=== PATIENT | female | born 1990 | race African-American/Black ===

== ENCOUNTER 2023-01-29 10:58 | Emergency (ER) | payer BC, SELFPAY ==
--- NOTE | ~2023-01-29 | XR_ITS ---
XR chest 1V DATE: 01/29/2023 11:25 INDICATION: Seizure. Weakness. TECHNIQUE: Portable AP chest on 01/29/2023 at 1124 hours COMPARISON: None FINDINGS: Normal heart size. No hilar or mediastinal enlargement. Lung expansion is somewhat limited, which may account for somewhat accentuated lung markings, although lower lobe infiltrate or atelecta sis is not excluded, especially on the left. Repeat PA and lateral views are recommended for more def initive evaluation of the lungs. IMPRESSION: Limited examination with suboptimal expansion of the lungs; cannot exclude lower lung inf iltrate or atelectasis, especially on the left Reviewed, dictated and finalized at location A. IMPRESSION: Limited examination with suboptimal expansion of the lungs; cannot exclude lower lung infiltrate or atelectasis, especially on the left
[2023-01-29 10:59] VITALS: BP 119/81; PULSE 94; RESP 14; TEMP 36.4; O2SAT 100
[2023-01-29 11:20] VITALS: PULSE 90
--- NOTE | 2023-01-29 11:21 | ED.SEIZURE ---
HPI - Seizure General Chief Complaint: Seizure Stated Complaint: seizure Time Seen by Provider: 01/29/23 11:01 History of Present Illness HPI Narrative: Patient is a 32-year-old female with history of seizure disorder who presents ER after having a seizure. Reports she found out last month that she is . She has been seeing [facility] OB and they recommended she stop her Keppra due to possible harm. This morning she was walking in her kitchen she got lightheaded. She then apparently had a seizure. EMS provided patient with Versed in route. EMS reports generalized full tonic-clonic seizure with flexion of the upper extremities. Patient reports she has had an ultrasound to confirm that her is in her uterus. Seizure History: Yes Related Data Allergies Allergy/AdvReac Type Severity Reaction Status Date / Time No Known Allergies Allergy Verified 01/29/23 12:35 Review of Systems Review of Systems: All systems reviewed & are unremarkable except as noted in HPI and below Constitutional: Constitutional: Denies chills, Denies fatigue and Denies fever(s) ENT: Denies nasal congestion and Denies sore throat Cardiovascular: Cardiovascular: Reports no additional cardiovascular complaints Respiratory: Respiratory: Reports no additional respiratory complaints Gastrointestinal: Gastrointestinal: Reports no additional gastrointestinal complaints Musculoskeletal: Musculoskeletal: Reports no additional musculoskeletal complaints Neurologic: Denies syncope and Denies headache(s) Comments: Seizure Exam Narrative: GENERAL: Well-appearing, well-nourished, and in no acute distress. HEAD: Normocephalic, atraumatic. EYES: PERRL and EOMI. ENT: Mucous membranes moist. CHEST: Clear to auscultation. No respiratory distress. HEART: Regular rate and rhythm. Normal peripheral pulses. ABDOMEN: Soft, nontender, nondistended. EXTREMITIES: Normal range of motion. No edema. SKIN: Warm, dry, no rash. NEURO: Alert and oriented x3. Clear speech, no focal deficit. PSYCH: Normal mood and affect. Course Course Emergency Course: I discussed the case with Dr. Richey with neurology. He recommends a patient be started on Lamictal 100 mg twice a day and that she receive her first dose here. I discussed this with the patient and she is verbalized consent to have Lamictal prescribed and that she plans to take it. Patient felt appropriate for discharge home Vital Signs Vital signs: Vital Signs Temperature 97.6 F 01/29/23 10:59 Pulse Rate 94 01/29/23 10:59 Respiratory Rate 14 01/29/23 10:59 Blood Pressure 119/81 01/29/23 10:59 Pulse Oximetry 100 01/29/23 10:59 Oxygen Delivery Room Air 01/29/23 10:59 Temperature 97.6 F 01/29/23 10:59 Pulse Rate 90 01/29/23 11:20 Respiratory Rate 14 01/29/23 10:59 Blood Pressure 119/81 01/29/23 10:59 Pulse Oximetry 100 01/29/23 10:59 Oxygen Delivery Room Air 01/29/23 10:59 MDM - Seizure Lab Data 01/29/23 11:48 01/29/23 11:48 Labs: Lab Results 01/29/23 01/29/23 01/29/23 Range/Units 11:48 12:10 12:11 WBC 6.1 (4.5-10.0) K/mm3 RBC 3.98 L (4.2-5.4) M/mm3 Hgb 11.8 L (12.0-15.0) g/dL Hct 34.8 L (37.0-47.0) % MCV 87.4 (80-100) fl MCH 29.6 (26-34) pg MCHC 33.9 (32-36) g/dl RDW 13.2 (11.5-14.5) % Plt Count 235 (150-375) k/mm3 MPV 8.8 (7.4-10.4) fl Immature Gran % (Auto) 0.5 (0-0.5) % Neut % (Auto) 65.3 (45.5-73.1) % Lymph % (Auto) 25.2 (18.3-44.2) % [place] % (Auto) 7.9 (2.6-8.5) % Eos % (Auto) 0.8 (0-4.4) % Baso % (Auto) 0.3 (0.2-1.2) % Lymph # (Auto) 1.53 (0.9-3.2) K/mm3 [place] # (Auto) 0.5 (0.1-0.6) K/mm3 Eos # (Auto) 0.1 (0-0.3) K/mm3 Baso # (Auto) 0.0 (0.0-0.1) K/mm3 Abs Immat Gran (auto) 0.03 (0.00-0.031) K/mm3 Absolute Neuts (auto) 4.0 (1.3-6.7) K/mm3 Absolute Nucleated RBC
[2023-01-29 12:02] LABS: Basophils Percent Auto 0.3 % (0.2-1.2); Eosinophils Absolute Auto 0.1 K/mm3 (0-0.3); Eosinophils Percent Auto 0.8 % (0-4.4); Hematocrit 34.8 % (37.0-47.0); Hemoglobin 11.8 g/dL (12.0-15.0); Immature Granulocyte Absolute 0.03 K/mm3 (0.00-0.031); Immature Granulocyte Percent A 0.5 % (0-0.5); Lymphocytes Absolute Auto 1.53 K/mm3 (0.9-3.2); Lymphocytes Percent Auto 25.2 % (18.3-44.2); Mean Corpuscular HGB Conc 33.9 g/dl (32-36); Mean Corpuscular Hemoglobin 29.6 pg (26-34); Mean Corpuscular Volume 87.4 fl (80-100); Mean Platelet Volume 8.8 fl (7.4-10.4); Monocytes Absolute Auto 0.5 K/mm3 (0.1-0.6); Monocytes Percent Auto 7.9 % (2.6-8.5); Neutrophils Percent Auto 65.3 % (45.5-73.1); Platelet Count Result 235 k/mm3 (150-375); Red Blood Count 3.98 M/mm3 (4.2-5.4); Red Cell Distribution Width 13.2 % (11.5-14.5); White Blood Count 6.1 K/mm3 (4.5-10.0)
[2023-01-29 12:17] LABS: Ethanol < 10 mg/dL (<10)
[2023-01-29 12:29] LABS: Appearance Urine Cloudy (Clear); Bacteria Urine 4+ /hpf; Bilirubin Urine Negative (Negative); Blood Urine Negative (Negative); Color Urine Yellow (Yellow); Glucose Urine UA Negative (Negative); Ketones Urine Trace mg/dL (Negative); Leukocyte Esterase Ur 2+ LEU/UL (Negative); Need Manual Microscopic Reviewed; Nitrate Urine Negative (Negative); Non Pathogenic Casts 0-2; Protein Urine Negative (Negative); RBC Urine 0-2 /hpf (0-2); Specific Grav Ur 1.017 (1.001-1.035); Squamous Epithelial Cell Urine Many /hpf (Few); WBC Urine 0-5 /hpf; pH Urine 7.5 (5.0-9.0)
[2023-01-29 12:30] LABS: Add Urine Microscopic? YES
[2023-01-29 12:34] LABS: Amphetamine Screen Urine Negative (Negative); Barbiturate Screen Urine Negative (Negative); Benzodiazepines Screen Urine Positive (Negative); Cannabinoid Screen Urine Negative (Negative); Cocaine Screen Urine Negative (Negative); Methadone Screen Urine Negative (Negative); Opiate Screen Urine Negative (Negative); Phencyclidine Screen Urine Negative (Negative)
[2023-01-29] MEDS: lamoTRIgine 100 MG TABLET PO (12:35)
[2023-01-29 12:42] LABS: Alanine Aminotransferase 13 U/L (6-35); Albumin Level 3.7 g/dL (3.5-5.1); Alkaline Phosphatase 37 U/L (38-126); Anion Gap 9 mmol/L (8-16); Aspartate Amino Transferase 24 U/L (14-36); Bilirubin,Total 0.6 mg/dL (0.2-1.3); Blood Urea Nitrogen 5 mg/dL (7-17); Calcium 8.6 mg/dL (8.4-10.2); Carbon Dioxide 21 mmol/L (22-30); Chloride 107 mmol/L (98-107); Estimated CRCL calculation 138 ml/min; Estimated Glomerular Filt Rate > 60; Glucose 74 mg/dL (65-110); Potassium 3.7 mmol/L (3.4-5.0); Sodium 137 mmol/L (137-145)
[2023-01-29 13:54] VITALS: BP 134/78; PULSE 84; RESP 16; O2SAT 99
== END 2023-01-29 13:55 | disposition home or self-care (01) ==
PROVIDERS: Emergency Provider Emergency Medicine
DX: O26.899 Other specified pregnancy related conditions, unspecified trimester (principal); G40.909 Epilepsy, unspecified, not intractable, without status epilepticus; Z3A.00 Weeks of gestation of pregnancy not specified
CPT/HCPCS: 36415; 71045; 80053; 80307; 81001; 81025; 85025; 99283; A9270